=== PATIENT | female | born 1970 | race Caucasian/White ===

== ENCOUNTER → 2020-12-10 | Outpatient (CLI) | payer BC ==
--- NOTE | 2020-12-10 14:07 | XR ---
Facial bones HISTORY: Trauma and pain, [id number] FALL,FACIAL INJURY 4 views of the facial bones Bone mineralization is maintained. Orbits are intact. Paranasal sinuses show no air-fluid level. Wate r's view is rotated. There is soft tissue swelling noted along the nose. Nasal bone appears intact on the lateral views but I question some irregularity on the Chatterjee' view. IMPRESSION: Soft tissue swelling along the nose. CT scan may be of increased sensitivity to assess fo r fracture as indicated.
== END | disposition home or self-care (01) ==
LOC: RADXRYALE 11:18
PROVIDERS: ATTEND Physician Assistant Medical
DX: M79.89 Other specified soft tissue disorders (principal)
CPT/HCPCS: 70140

== ENCOUNTER → 2021-02-19 | Outpatient (CLI) | payer BC ==
--- NOTE | 2021-02-19 13:16 | XR ---
EXAMINATION TYPE: XR ribs RT w pa chest xray DATE OF EXAM: 02/19/2021 COMPARISON: NONE TECHNIQUE: PA view of the chest and 4 views of the right ribs are submitted. HISTORY: Pain FINDINGS: The lungs are clear and there is no pneumothorax, pleural effusion, or focal pneumonia. No acute displaced rib fracture. IMPRESSION: 1. No acute displaced rib fracture..
== END | disposition home or self-care (01) ==
LOC: RADXRYALE 11:45
PROVIDERS: ATTEND Physician Assistant
DX: R07.82 Intercostal pain (principal)

== ENCOUNTER → 2022-05-18 | Outpatient (CLI) | payer BC ==
--- NOTE | 2022-05-18 11:29 | XR ---
EXAMINATION TYPE: XR finger or thumb bilateral DATE OF EXAM: 05/18/2022 COMPARISON: NONE HISTORY: Pain TECHNIQUE: 2 views of each thumb are submitted FINDINGS: Osseous structures intact. Joint spaces preserved. No acute fracture or dislocation. No ero sive changes. IMPRESSION: No acute fracture or dislocation is symptoms persist follow-up study in 7-10 days could b e obtained.
== END | disposition home or self-care (01) ==
LOC: RADXRYALE 11:11
PROVIDERS: ATTEND Physician Assistant
DX: M79.645 Pain in left finger(s) (principal); M79.644 Pain in right finger(s)

== ENCOUNTER → 2023-07-22 | Outpatient (CLI) | payer BC ==
--- NOTE | 2023-07-25 09:48 | MM ---
Reason for Exam: Screening (asymptomatic). Last mammogram was performed 7 year(s) and 6 month(s) ago. Patient History: Menarche at age 13. First Full-Term at age 21. Perimenopausal. Patient used Hormonal Contraceptives for 5 years. Risk Values: Nazanin 5 year model risk: 0.9%. NCI Lifetime model risk: 7.9%. Prior Study Comparison: 12/13/2014 Bilateral Screening Mammogram, [facility]. 12/31/2015 Bilateral Screening Mammogram, [facility]. Tissue Density: There are scattered areas of fibroglandular density. Findings: Analyzed By CAD. Right breast: There is no suspicious group of microcalcifications or new suspicious mass. Left breast: There is no suspicious group of microcalcifications or new suspicious mass. Overall Assessment: Negative, BI-RAD 1 Management: Screening Mammogram of both breasts in [address] [facility] will attempt to contact patient to return for supplemental views and ultrasound if indicated. Patient should continue monthly self-breast exams. A clinical breast exam by your physician is recommended on an annual basis. This exam should not preclude additional follow-up of suspicious palpable abnormalities. Note on Nazanin scores and lifetime risk: 1. A Nazanin score greater than 3% is considered moderate risk. If this is the case, consider specialist referral to assess eligibility for a risk reducing agent. 2. If overall lifetime risk for the development of breast cancer is 20% or higher, the patient may qualify for future screening with alternating mammogram and breast MRI. Electronically signed and approved by: Dario Gurrola DO
== END | disposition home or self-care (01) ==
LOC: RADMAMWWP 10:46
PROVIDERS: ATTEND Family Medicine
DX: Z12.31 Encounter for screening mammogram for malignant neoplasm of breast (principal)
CPT/HCPCS: 77063; 77067

== ENCOUNTER → 2024-09-19 | Outpatient (CLI) | payer BC ==
--- NOTE | 2024-09-19 15:33 | MM ---
Reason for Exam: Screening (asymptomatic). Last mammogram was performed 1 year(s) and 2 month(s) ago. Patient History: Menarche at age 13. First Full-Term at age 21. Perimenopausal. Patient used Hormonal Contraceptives for 5 years. Risk Values: Nazanin 5 year model risk: 0.9%. NCI Lifetime model risk: 7.8%. Prior Study Comparison: 12/13/2014 Bilateral Screening Mammogram, [facility]. 12/31/2015 Bilateral Screening Mammogram, [facility]. 07/22/2023 Bilateral MG 3D screening mammo w/cad, [facility]. Tissue Density: The breasts are heterogeneously dense, which may obscure small masses. Findings: Analyzed By CAD. Subareolar asymmetric density outer right cc view remains unchanged. There is no suspicious group of microcalcifications or new suspicious mass in either breast. Overall Assessment: Benign, BI-RAD 2 Management: Screening Mammogram of both breasts in 1 year. Patient should continue monthly self-breast exams. A clinical breast exam by your physician is recommended on an annual basis. This exam should not preclude additional follow-up of suspicious palpable abnormalities. Note on Nazanin scores and lifetime risk: 1. A Nazanin score greater than 3% is considered moderate risk. If this is the case, consider specialist referral to assess eligibility for a risk reducing agent. 2. If overall lifetime risk for the development of breast cancer is 20% or higher, the patient may qualify for future screening with alternating mammogram and breast MRI. [facility], , 09/19/2024 3:30 PM. Electronically signed and approved by: Angie Paz M.D. Radiologist
== END | disposition home or self-care (01) ==
LOC: RADMAMWWP 09:39
PROVIDERS: ATTEND Family Medicine
DX: Z12.31 Encounter for screening mammogram for malignant neoplasm of breast (principal); R92.333 Mammographic heterogeneous density, bilateral breasts; Z92.0 Personal history of contraception
CPT/HCPCS: 77063; 77067